=== PATIENT | female | born 1950 | race Caucasian/White ===

== ENCOUNTER → 2017-03-07 | Outpatient (CLI) | payer BC | END | disposition home or self-care (01) | LOC: C.LABSPEC 17:34 | PROVIDERS: ATTEND Urology | DX: R30.0 Dysuria (principal) ==

== ENCOUNTER → 2017-09-05 | Outpatient (CLI) | payer BC | END | disposition home or self-care (01) | LOC: C.PATHSPEC 17:11 | PROVIDERS: ATTEND Urology | DX: R39.89 Other symptoms and signs involving the genitourinary system (principal) ==